=== PATIENT | female | born 2000 | race Caucasian/White ===

== ENCOUNTER 2021-01-20 15:31 | Outpatient (CLI) | payer OTHER, SELFPAY ==
--- NOTE | 2021-01-20 | ECG_ITS ---
Measurements Intervals [place] Rate: 83 P: 69 MA: 193 QRS: 71 QRSD: 84 T: 42 QT: 368 QTc: 434 Interpretive Statements SINUS RHYTHM NORMAL ECG Electronically Signed On 01-20-2021 16:24:05 CDT by Thomas Duong D.O.
== END 2021-01-20 15:32 | disposition home or self-care (01) ==
PROVIDERS: Visit Provider Emergency Medicine
DX: R07.89 Other chest pain (principal)
CPT/HCPCS: 93005

== ENCOUNTER 2021-02-27 12:46 | Emergency (ER) | payer OTHER, SELFPAY ==
--- NOTE | ~2021-02-27 | CT_ITS ---
EXAMINATION: CTA chest PE protocol DATE: 02/27/2021 16:12 INDICATION: Upper chest pain. TECHNIQUE: Computed tomography angiography (CTA) of the chest was performed with 100 mL Omnipaque-350 intravenous contrast timed to evaluate the pulmonary arteries. Coronal maximum intensity projection 3D-reconstructions were created by the technologist. Automated exposure control and iterative reconst ruction technique were employed. The dose-length product was 189.76 mGy-cm. COMPARISON: Chest 2 views 02/27/2021 FINDINGS: There is no pneumonia or pleural effusion. The heart size is normal. No pericardial effusio n. There is no pulmonary embolus. The bones are unremarkable. IMPRESSION: 1. No pulmonary embolus. Reviewed, dictated and finalized at location A. IMPRESSION: 1. No pulmonary embolus.
--- NOTE | ~2021-02-27 | XR_ITS ---
XR chest 2V DATE: 02/27/2021 13:26 INDICATION: Intermittent left-sided chest pain for 6 weeks TECHNIQUE: PA and lateral views COMPARISON: None FINDINGS: Normal heart size. No hilar or mediastinal enlargement. No pulmonary infiltrate or consolid ation, pleural effusion or pulmonary vascular congestion or pneumothorax. IMPRESSION: No active cardiopulmonary disease Reviewed, dictated and finalized at location A.
[2021-02-27 12:54] VITALS: BP 114/64; PULSE 74; RESP 16; TEMP 36.6; O2SAT 100
--- NOTE | 2021-02-27 12:55 | ECG_ITS ---
Measurements Intervals [place] Rate: 71 P: 67 DC: 179 QRS: 50 QRSD: 82 T: 36 QT: 378 QTc: 412 Interpretive Statements SINUS RHYTHM BORDERLINE ST-T WAVE ABNORMALITY- INFERIOR LEADS BORDERLINE ECG Electronically Signed On 02-27-2021 13:03:33 CDT by Thomas Duong D.O.
[2021-02-27 13:17] LABS: Basophils Absolute Auto 0.1 K/mm3 (0.0-0.1); Eosinophils Absolute Auto 0.1 K/mm3 (0-0.3); Hematocrit 38.8 % (37.0-47.0); Hemoglobin 13.2 g/dL (12.0-15.0); Immature Granulocyte Absolute 0.02 K/mm3 (0.00-0.031); Immature Granulocyte Percent A 0.3 % (0-0.5); Lymphocytes Absolute Auto 2.35 K/mm3 (0.9-3.2); Lymphocytes Percent Auto 37.4 % (18.3-44.2); Mean Corpuscular Hemoglobin 28.3 pg (26-34); Mean Corpuscular Volume 83.3 fl (80-100); Mean Platelet Volume 10.1 fl (7.4-10.4); Monocytes Absolute Auto 0.7 K/mm3 (0.1-0.6); Monocytes Percent Auto 11.6 % (2.6-8.5); Neutrophils Absolute Auto 3.1 K/mm3 (1.3-6.7); Neutrophils Percent Auto 48.7 % (45.5-73.1); Platelet Count Result 228 k/mm3 (150-375); Red Blood Count 4.66 M/mm3 (4.2-5.4); Red Cell Distribution Width 12.7 % (11.5-14.5); White Blood Count 6.3 K/mm3 (4.5-10.0)
[2021-02-27 13:28] LABS: Anion Gap 9 mmol/L (8-16); Blood Urea Nitrogen 15 mg/dL (7-17); Calcium 9.3 mg/dL (8.4-10.2); Carbon Dioxide 28 mmol/L (22-30); Chloride 103 mmol/L (98-107); Estimated CRCL calculation 79 ml/min; Estimated Glomerular Filt Rate > 60; Glucose 92 mg/dL (65-110); Potassium 4.2 mmol/L (3.4-5.0); Sodium 140 mmol/L (137-145)
[2021-02-27 13:31] LABS: Prothrombin Time 12.8 Seconds (11.1-14.7)
[2021-02-27 13:32] LABS: Partial Thromboplastin Time 30.3 SECONDS (22.3-36.8)
[2021-02-27 13:40] LABS: Troponin I < 0.012 ng/mL (0.000-0.034)
[2021-02-27 15:06] LABS: D Dimer 0.65 ug/mL (<0.48)
[2021-02-27 15:43] VITALS: BP 120/70; PULSE 70; RESP 17; O2SAT 100
[2021-02-27] MEDS: KETOROLAC 30 MG/ML VIAL (*BKC) IV PUSH (16:24)
--- NOTE | 2021-02-27 16:47 | PC.NURSE ---
Called lab and spoke to Joelle to add on Hepatic Lip
[2021-02-27 17:18] LABS: Troponin I < 0.012 ng/mL (0.000-0.034)
--- NOTE | 2021-02-27 17:30 | ED.CHESTPAIN ---
HPI - Chest Pain General Chief Complaint: Chest Pain Stated Complaint: chest pain Time Seen by Provider: 02/27/21 13:17 Source: RN notes reviewed History of Present Illness HPI narrative: Patient presents emergency department from home for chest pain. Patient states she has been having issues with chest pain since the end of December 2020. The pain is located across the bilateral anterior chest and does not radiate described as a pressure in nature. Patient states the pain is intermittent and is having approximately 2-3 episodes a day nothing seems to make the pain better or worse she denies any fevers or chills shortness of breath abdominal pain nausea or vomiting or any other symptoms. States she did not take any symptoms for the pain today Related Data Allergies Allergy/AdvReac Type Severity Reaction Status Date / Time No Known Allergies Allergy Verified 02/27/21 13:20 Review of Systems Review of Systems: Gen.: Denies fevers or chills ENT: Denies congestion Respiratory: Denies shortness of breath or cough CV: See HPI GI: Denies abdominal pain nausea, emesis or diarrhea denies burning, urgency, frequency or hematuria Musculoskeletal: Denies back pain or muscle pain Neuro: Denies numbness, tingling, weakness or focal weakness Skin: Denies rash Except as documented, all other systems reviewed and negative PMFSH Past Medical History Medical History (Updated 02/27/21 @ 17:50 by Vel Dodson DO) Patient denies significant medical history Social History Social History (Updated 02/27/21 @ 17:30 by Vel Dodson DO) Smoking status: Never smoker Exam Narrative: APPEARANCE: No acute distress, nontoxic, resting in bed EYES: EOMI HEENT: Normocephalic, atraumatic, OMM RESPIRATORY: No respiratory distress Clear to auscultation bilaterally with no rhonchi wheezing or rales. CARDIOVASCULAR: Regular rate and rhythm without murmurs rubs or gallops. ABDOMINAL: Soft, nontender, nondistended, no rebound or guarding MUSCULOSKELETAl: Moves all extremities. No clubbing, cyanosis or edema. NEURO: Awake and alert. Following commands, speech normal, no focal deficits SKIN:: Warm, dry. No rashes lesions or abrasions PSYCHIATRIC: Normal affect/mood, Course Course Emergency Course: Patient states pain is improved with medication Discussed with patient results of workup and diagnosis. Discussed need for follow-up with primary care, proper use of medication, and reasons to return to the emergency department. Patient understands and agrees to current treatment plan Vital Signs Vital signs: Vital Signs Temperature 97.9 F 02/27/21 12:54 Pulse Rate 74 02/27/21 12:54 Respiratory Rate 16 02/27/21 12:54 Blood Pressure 114/64 02/27/21 12:54 Pulse Oximetry 100 02/27/21 12:54 Temperature 97.9 F 02/27/21 12:54 Pulse Rate 70 02/27/21 15:43 Respiratory Rate 17 02/27/21 15:43 Blood Pressure 120/70 02/27/21 15:43 Pulse Oximetry 100 02/27/21 15:43 MDM - Chest Pain MDM Narrative Medical decision making narrative: Patient's EKGs and labs are without significant high risk changes. Cardiac risk factors reviewed. Patient is felt likely low risk for ACS and reasonable for further risk stratification testing as an outpatient. CTA of the chest shows no pulmonary embolism, pneumonia, aneurysm.. Patient is felt to be a reasonable candidate for continued evaluation as an outpatient suspect component of musculoskeletal versus GI will treat for both with follow-up as an outpatient pain has been ongoing for the past 6 weeks 2 troponins in ED Lab Data Result diagrams: 02/27/21 13:01 02/27/21 13:01 Labs: Lab Results 02/27/21 02/27/21 02/27/21 Range/Units 13:01 13:01 13:01 WBC 6.3 (4.5-10.0) K/mm3 RBC 4.66 (4.2-5.4) M/mm3 Hgb 13.2 (12.0-15.0) g/dL Hct 38.8 (37.0-47.0) % MCV 83.3 (80-100) fl MCH 28.3 (26-34) pg MCHC 34.0 (32-36) g/dl RDW 12
[2021-02-27 17:44] LABS: Alanine Aminotransferase 16 U/L (4-35); Alkaline Phosphatase 63 U/L (38-126); Aspartate Amino Transferase 27 U/L (14-36); Bilirubin,Total 1.1 mg/dL (0.2-1.3); Lipase 47 U/L (23-300)
== END 2021-02-27 18:04 | disposition home or self-care (01) ==
PROVIDERS: Family Medicine; Emergency Provider Emergency Medicine
DX: R07.89 Other chest pain (principal); R94.31 Abnormal electrocardiogram [ECG] [EKG]
CPT/HCPCS: 36415; 71046; 71275; 80048; 80076; 81025; 83690; 84484; 85025; 85380; 85610; 85730; 93005; 96374; 99284; A9270; J1885; Q9967